=== PATIENT | male | born 1950 | race African-American/Black ===

== ENCOUNTER 2018-08-10 05:29 | Day surgery (SDC) | payer OTHER ==
[~2018-08-10] VITALS: Ht 172.7 cm; Wt 81.6 kg
[~2018-08-10 05:29] MED LIST: ASPI-1159 PO
[2018-08-10] MEDS ORDERED: LACTATED RINGERS 1,000 ML IV SCH (07:30)
[2018-08-10] MEDS ORDERED: SKIN ADHESIVE 0.7 GM EA TOP ONE (09:21)
[2018-08-10] MEDS ORDERED: BUPIVACAINE HCL 0.5% (5MG/ML) 50ML ONE (09:22)
[2018-08-10] MEDS ORDERED: FENTANYL CITRATE/PF 50MCG/ML 2ML VIAL ONE (10:00)
[2018-08-10] MEDS ORDERED: ROCURONIUM BROMIDE 10MG/ML VIAL 5ML IV ONE (10:00)
[2018-08-10] MEDS ORDERED: MIDAZOLAM HCL 2 MG/2 ML VIAL ONE (10:00)
[2018-08-10] MEDS ORDERED: NEOSTIGMINE METHYLSULFATE 1MG/ML 10 ML VIAL ONE (10:00)
[2018-08-10] MEDS ORDERED: PROPOFOL 200MG/20ML VIAL IV ONE (10:00)
[2018-08-10] MEDS ORDERED: DEXAMETHASONE 4MG/ML 1ML VIAL ONE (10:01)
[2018-08-10] MEDS ORDERED: GLYCOPYRROLATE 0.2 MG/ML 2ML VIAL ONE (10:01)
[2018-08-10] MEDS ORDERED: CEFAZOLIN SODIUM 1000MG/VIAL ONE (10:13)
[2018-08-10] MEDS ORDERED: ONDANSETRON HCL 4MG/2ML INJ ONE (10:16)
[2018-08-10] MEDS ORDERED: LIDOCAINE HCL/PF 1% 10 MG/ML 5ML VIAL ONE (10:19)
[2018-08-10] MEDS ORDERED: SUCCINYLCHOLINE CHLORIDE 200MG/10ML IV ONE (10:19)
[2018-08-10] MEDS ORDERED: LABETALOL 5MG/ML SYR 20 MG/4 ML SYRINGE IV PRN (10:30)
[2018-08-10] MEDS ORDERED: ONDANSETRON HCL 4MG/2ML INJ IV PRN (10:30)
[2018-08-10] MEDS ORDERED: MEPERIDINE HCL/PF 25MG/ML CPJ IV PRN (10:30)
[2018-08-10] MEDS ORDERED: LABETALOL HCL 5MG/ML VIAL 20ML IV ONE (10:32)
[2018-08-10] MEDS: HYDROMORPHONE HCL/PF 2MG/ML CPJ IV PRN ×3 (13:09→13:48)
[2018-08-10 13:48] VITALS: BP 149/95
== END 2018-08-10 14:20 | disposition home or self-care (01) ==
LOC: OR 05:29
PROVIDERS: ATTEND Surgery
DX: K40.90 Unilateral inguinal hernia, without obstruction or gangrene, not specified as recurrent (principal); I25.10 Atherosclerotic heart disease of native coronary artery without angina pectoris; Z79.82 Long term (current) use of aspirin; Z95.1 Presence of aortocoronary bypass graft
CPT/HCPCS: 49650; C1781; G0168; J0330; J0690; J1100; J1170; J2250; J2405; J2710; J3010; J3490; S2900; J2704